=== PATIENT | male | born 1995 | race Caucasian/White ===

== ENCOUNTER 2017-03-31 20:20 | Emergency (ER) | payer OTHER ==
[~2017-03-31] VITALS: Ht 193 cm; Wt 96.2 kg
--- NOTE | 2017-03-31 20:30 | NUR ---
PT A/OX4 BREATHING EFFORTLESSLY ON ROOM AIR, PT STATES HE HAS BEEN HVAING RLQ ABD PAIN WITH NO NAUSEA VOMITING OR DIARRHEA AND RIGHT TESTICVULAR PAIN SINCE 2129 YESTERDAY, PT DENIES ANY TRAUMA OR INJURY, PT ON MONITOR, IN GOWN, IV PLACED, LABS DRAWN, BRAZER ELECTRONIC MADE AWARE WILL CONTINUE TO MONITOR.
--- NOTE | 2017-03-31 20:36 | NUR ---
CALLED RADIOLOGY FOR ULTRASOUND
[2017-03-31] MEDS ORDERED: ONDANSETRON HCL/PF 4 MG/2 ML VIAL ONE (20:37)
[2017-03-31] MEDS ORDERED: MORPHINE SULFATE INJ 4 MG/ML DISP.SYRIN ONE (20:37)
[2017-03-31] MEDS ORDERED: ACETAMINOPHEN ES 500 MG TABLET ONE (20:38)
[2017-03-31 20:52] LABS: BASOPHILS # (AUTO) 0.6 /CMM (0.0-0.2); BASOPHILS % (AUTO) 4.5 % (0.0-2.0); HEMATOCRIT 47 % (39-51); HEMOGLOBIN 16.2 g/dL (13.5-17.5); LYMPHOCYTES # (AUTO) 2.2 /CMM (0.8-4.8); MEAN CORPUSCULAR HEMOGLOBIN 30 PG (26.0-33.0); MEAN CORPUSCULAR HGB CONC 35 g/dl (31.0-36.0); MEAN CORPUSCULAR VOLUME 86 fL (80-96); MONOCYTES # (AUTO) 1.4 /CMM (0.1-1.30); MONOCYTES % (AUTO) 10.4 % (2.0-12.0); NEUTROPHILS # (AUTO) 9.3 /CMM (1.8-8.9); NEUTROPHILS % (AUTO) 69.1 % (43.0-81.0); PLATELET COUNT (AUTO) 237 /CMM (150-450); RDW COEFFICIENT OF VARIATION 11.4 (11.5-15.0); WHITE BLOOD COUNT (AUTO) 13.5 K/uL (4.3-11.0)
[2017-03-31 20:59] LABS: CALCIUM, SERUM 9.3 mg/dL (8.5-10.1); POTASSIUM 3.8 mmol/L (3.5-5.1)
[2017-03-31] MEDS ORDERED: MORPHINE SULFATE INJ 2 MG/ML DISP.SYRIN IV ONE (21:00)
[2017-03-31] MEDS ORDERED: ONDANSETRON HCL/PF 4 MG/2 ML VIAL IVP ONE (21:00)
[2017-03-31] MEDS ORDERED: ACETAMINOPHEN ES 500 MG TABLET PO ONE (21:00)
[2017-03-31] MEDS ORDERED: IV NS 0.9% 1,000 ML BAG IV ONE (21:00)
[2017-03-31 21:05] LABS: APPEARANCE,URINE Clear (CLEAR); BILIRUBIN,URINE SMALL (NEGATIVE); BLOOD, URINE Trace-intact Ery/uL (NEGATIVE); COLOR,URINE Dark (YELLOW); KETONES,URINE 80 (NEGATIVE); LEUKOCYTE ESTERASE ,URINE Negative (NEGATIVE); NITRITE, URINE Negative (NEGATIVE); PROTEIN,URINE 30 mg/dl (NEGATIVE); UGLUCOSE Negative (NEGATIVE)
--- NOTE | 2017-03-31 21:13 | NUR ---
ULTRASOUND AT BEDSIDE
[2017-03-31 21:15] LABS: BACTERIA,URINE Rare /HPF (None Seen); SQUAMOUS EPITHELIAL CELL,UR Few /HPF (None Seen); WBC,URINE NONE SEEN /HPF (0-3)
--- NOTE | 2017-03-31 21:39 | NUR ---
TEMP HAS INCREASED FROM 101.4 TO 101.9 QUALITY CONTROL ASSISTANT MADE AWARE, NO ORDERS AT THIS TIME WILL CONTINUE TO MONITOR.
[2017-03-31] MEDS ORDERED: IOHEXOL-300 100 ML VIAL IV ONE (21:51)
[2017-03-31] MEDS ORDERED: IV NS 0.9% 250 ML IV ONE (21:52)
[2017-03-31] MEDS ORDERED: CT SWABBABLE VALVE TRANS SET 1 EA INFUS.SET MC ONE (21:52)
[2017-03-31] MEDS ORDERED: KETOROLAC TROMETHAMINE INJ 30 MG/ML VIAL IV ONE (23:00)
[2017-03-31] MEDS ORDERED: KETOROLAC TROMETHAMINE 15 MG/ML VIAL ONE (23:08)
--- NOTE | 2017-03-31 23:40 | NUR ---
ASSUMED D/C CARE ONLY ON BEHALF OF PRIMARY NURSE GOLDY. Patient discharged to home in stable condition. Written and verbal after care instructions given. Patient verbalizes understanding of instruction. IV removed. Catheter intact and site benign. Pressure and 4x4 applied to site. No bleeding noted. Ambulatory with a steady gait
[2017-03-31 23:41] VITALS: BP 129/69
[2017-04-02 10:15] LABS: RUBELLA ANTIBODIES, IGG 1.59 index (Immune >0.99)
[2017-04-02 11:09] LABS: *MUMPS AB (IGG) >300.0 AU/mL (Immune >10.9); *RUBEOLA AB (IGG) <25.0 AU/mL (Immune >29.9)
== END 2017-03-31 23:42 | disposition home or self-care (01) ==
LOC: ER 20:23
DX: R10.31 Right lower quadrant pain (principal)
CPT/HCPCS: 36415; 76870-TC; 80048-TC; 81000-TC; 85025-TC; 86735; 86762; 86765; A4606; J1885; J2270; J2405; J7030; J7050; Q9967; Z7610

== ENCOUNTER 2017-04-01 09:19 | Emergency (ER) | payer OTHER ==
[~2017-04-01] VITALS: Ht 193 cm; Wt 96.2 kg
--- NOTE | 2017-04-01 09:29 | NUR ---
PRESENTS SELF TO ED FOR ABDOMINAL PAIN AND RIGHT TESTICULAR PAIN. PATIENT IN NO APPARENT DISTRESS. SATING WELL ON ROOM AIR. PATIENT WAS IN ED YESTERDAY TOO FOR SAME REASON. VSS
--- NOTE | 2017-04-01 09:32 | NUR ---
MD DE AT BEDSIDE
[2017-04-01 09:36] VITALS: BP 120/65
--- NOTE | 2017-04-01 09:37 | NUR ---
AT DISCSSING PLAN OF CARE
--- NOTE | 2017-04-01 09:39 | NUR ---
Patient discharged to home in stable condition. Written and verbal after care instructions given. Patient AND MOTHER verbalizes understanding of instruction.
== END 2017-04-01 09:37 | disposition home or self-care (01) ==
LOC: ER 09:21
DX: R10.9 Unspecified abdominal pain (principal)
CPT/HCPCS: A4606; Z7502; Z7610